=== PATIENT | female | born 2000 | race Caucasian/White ===

== ENCOUNTER 2019-08-29 08:21 | Emergency (ER) | payer MEDICAID ==
[~2019-08-29] VITALS: Ht 154.9 cm; Wt 50.1 kg
[2019-08-29 08:39] VITALS: Ht 154.9 cm; Wt 50.1 kg
[2019-08-29 09:46] LABS: BASOPHIL % 0.5 % (0-2); PLATELET COUNT 233 x10^3mcL (130-400); RED CELL DISTRIBUTION WIDTH 13.7 % (11.5-14.5)
[2019-08-29 09:51] LABS: CARBON DIOXIDE 26.1 mmol/L (21-32); CHLORIDE SERUM 104 mmol/L (98-107); CREATININE SERUM 0.5 mg/dL (0.6-1.0); GFR1 > 60 mL/min; GLUCOSE SERUM 78 mg/dL (74-106); POTASSIUM SERUM 3.7 mmol/L (3.5-5.1); SODIUM SERUM 138 mmol/L (136-145)
[2019-08-29 10:55] VITALS: BP 119/76
== END 2019-08-29 10:55 | disposition home or self-care (01) ==
LOC: ED 08:21
PROVIDERS: Emergency Medicine
DX: O20.0 Threatened abortion (principal)
CPT/HCPCS: J2405; J7030

== ENCOUNTER 2019-08-31 07:38 | Emergency (ER) | payer MEDICAID ==
[~2019-08-31] VITALS: Ht 154.9 cm; Wt 50.6 kg
[2019-08-31 07:47] VITALS: Ht 154.9 cm; Wt 50.6 kg
[2019-08-31 10:07] VITALS: BP 114/68
== END 2019-08-31 10:46 | disposition home or self-care (01) ==
LOC: ED 07:38
DX: O20.8 Other hemorrhage in early pregnancy (principal); O21.9 Vomiting of pregnancy, unspecified; Z3A.10 10 weeks gestation of pregnancy
CPT/HCPCS: 36415